=== PATIENT | female | born 1940 | race African-American/Black ===

== ENCOUNTER → 2023-08-22 | Day surgery (SDC) | payer MEDICARE | LOC: ENDO/OP 12:25 | PROVIDERS: ATTEND Physician Assistant Medical | PROC: 4A1B78Z Monitoring of Gastrointestinal Motility, Via Natural or Artificial Opening (ICD-10-PCS; principal; 2023-08-22) | DX: R13.10 Dysphagia, unspecified (principal); K21.9 Gastro-esophageal reflux disease without esophagitis; J43.9 Emphysema, unspecified; I10 Essential (primary) hypertension; Z91.040 Latex allergy status; Z88.0 Allergy status to penicillin; Z88.1 Allergy status to other antibiotic agents; Z79.899 Other long term (current) drug therapy; Z87.01 Personal history of pneumonia (recurrent) | CPT/HCPCS: 91010 ==

== ENCOUNTER 2023-11-22 08:23 | Outpatient (CLI) | payer MEDICARE ==
[2023-11-22] MEDS ORDERED: Barium Sulfate 96% 176 GM BOT (xray ONLY) PO ONE (08:52)
[2023-11-22] MEDS ORDERED: E-Z-HD 98% W/W 340GM BOT (x-ray ONLY) ONE (08:52)
== END 2023-11-22 08:24 | disposition home or self-care (01) ==
LOC: RAD 08:23
PROVIDERS: ATTEND Internal Medicine Gastroenterology
DX: R13.14 Dysphagia, pharyngoesophageal phase (principal); R19.2 Visible peristalsis
CPT/HCPCS: 74220